=== PATIENT | male | born 1990 | race Two or more races ===

== ENCOUNTER 2018-09-16 05:49 | Inpatient (IN) | payer OTHER ==
[~2018-09-16] VITALS: Ht 188 cm; Wt 113.4 kg
--- NOTE | 2018-09-16 06:20 | NUR ---
Pt BIBSELF FROM HOME, WITH GIRLFRIEND AT BEDSIDE. Pt C/O RLQ ABD PAIN RADIATING TO RT FLANK SINCE LAST NIGHT. C/O DYSURIA WITH SENSATION OF "BLOCKAGE." DENIES ANY HEMATURIA. +N/-V/-D. LBM WAS YESTERDAY, PER Pt WAS NORMAL. Pt IS A/OX3, VERBAL, ABLE TO MAKE NEEDS KNOWN. NO S/S OF ACUTE DISTRESS OR SOB NOTED. Pt ALREADY SEEN BY MD AT BEDSIDE. WILL CONTINUE TO MONITOR Pt.
[2018-09-16] MEDS ORDERED: IV NS 0.9% 1,000 ML BAG IV ONE (06:30)
[2018-09-16] MEDS ORDERED: KETOROLAC TROMETHAMINE INJ 30 MG/ML VIAL IV ONE (06:30)
[2018-09-16] MEDS ORDERED: ONDANSETRON HCL/PF 4 MG/2 ML VIAL IVP ONE (06:30)
[2018-09-16] MEDS ORDERED: HYDROMORPHONE INJ 2 MG/ML DISP.SYRIN IV ONE (06:30)
--- NOTE | 2018-09-16 06:35 | NUR ---
IV ACCESS STARTED ON RAC#18G
[2018-09-16] MEDS ORDERED: KETOROLAC TROMETHAMINE 15 MG/ML VIAL ONE (06:47)
[2018-09-16 06:48] LABS: BASOPHILS # (AUTO) 0.1 /CMM (0.0-0.2); BASOPHILS % (AUTO) 0.4 % (0.0-2.0); EOSINOPHILS % (AUTO) 0.9 % (0.0-6.0); HEMATOCRIT 44 % (39-51); HEMOGLOBIN 15.5 g/dL (13.5-17.5); LYMPHOCYTES # (AUTO) 1.5 /CMM (0.8-4.8); LYMPHOCYTES % (AUTO) 9.4 % (20.0-44.0); MEAN CORPUSCULAR HGB CONC 35 g/dl (31.0-36.0); MEAN CORPUSCULAR VOLUME 88 fL (80-96); MONOCYTES # (AUTO) 1.2 /CMM (0.1-1.30); MONOCYTES % (AUTO) 7.7 % (2.0-12.0); NEUTROPHILS # (AUTO) 12.8 /CMM (1.8-8.9); NEUTROPHILS % (AUTO) 81.6 % (43.0-81.0); PLATELET COUNT (AUTO) 239 /CMM (150-450); RED BLOOD CELL COUNT(AUTO) 4.99 MIL/uL (4.5-6.0); WHITE BLOOD COUNT (AUTO) 15.7 K/uL (4.3-11.0)
[2018-09-16] MEDS ORDERED: ONDANSETRON HCL/PF 4 MG/2 ML VIAL ONE (06:48)
[2018-09-16] MEDS ORDERED: HYDROMORPHONE 1 MG/1 ML DISP.SYRIN ONE (06:48)
--- NOTE | 2018-09-16 06:50 | NUR ---
US of scrotum being done at bedside.
[2018-09-16 06:56] LABS: CALCIUM, SERUM 9.1 mg/dL (8.5-10.1); POTASSIUM 4.2 mmol/L (3.5-5.1)
[2018-09-16 07:02] LABS: ALBUMIN 3.9 g/dL (3.4-5.0); BILIRUBIN,DIRECT 0.2 mg/dL (0.0-0.2); TOTAL PROTEIN, SERUM 7.7 g/dL (6.4-8.2)
--- NOTE | 2018-09-16 07:05 | NUR ---
Pt TAKEN FOR CT
[2018-09-16 07:16] LABS: APPEARANCE,URINE CLEAR (CLEAR); BILIRUBIN,URINE NEGATIVE (NEGATIVE); BLOOD, URINE NEGATIVE Ery/uL (NEGATIVE); COLOR,URINE YELLOW (YELLOW); KETONES,URINE NEGATIVE (NEGATIVE); LEUKOCYTE ESTERASE ,URINE NEGATIVE (NEGATIVE); NITRITE, URINE NEGATIVE (NEGATIVE); PROTEIN,URINE NEGATIVE (NEGATIVE); UGLUCOSE NEGATIVE (NEGATIVE); UROBILINOGEN,URINE 0.2 EU/dL (0.2)
--- NOTE | 2018-09-16 07:17 | NUR ---
Pt RETURNED FROM CT
--- NOTE | 2018-09-16 07:28 | NUR ---
ALL ORDERED MEDS GIVEN
--- NOTE | 2018-09-16 07:29 | NUR ---
ENDORSED TO ONCOMING PERCUSSION INSTRUMENT TUNERDAISY FRAUSTO FOR Pt's JENNIFER
[2018-09-16] MEDS ORDERED: PIPERACILLIN /TAZOBACTAM 3.375 G in IV D5W 50 ML IV ONE (07:30)
--- NOTE | 2018-09-16 07:36 | NUR ---
PT BACK FROM CT SCAN AND ULTRA SOUND COMPLETED PT BEING ADMITTED FOR APPENDICITIS. PT HAS 18 G IN RIGHT AC FLUSHES EASILY WITHOUT PAIN REDNESS OR SWELLING. PT ALERT WITH ORIENTATION X 4. PT DEVELOPED RIGHT SIDED ABDOMINAL PAIN LAST NIGHT AROUND 2300. PRESENTLY PT RELIEVED WITH PAIN MEDICATIONS NORMAL SALINE BOLUS COMPLETED AFEBRILE VITAL SIGNS STABLE. LAST TIME PT ATE WAS 2200 LAST NIGHT AND HAS NOT VOIDED SINCE PT URINATES FREQUENTLY. PT PENDING ADMISSION.
--- NOTE | 2018-09-16 07:43 | NUR ---
@978 --- CALLED [facility] [phone]
[2018-09-16] MEDS ORDERED: ACETAMINOPHEN 325 MG TABLET PO PRN (08:00)
[2018-09-16] MEDS ORDERED: IV NS 0.9% 1,000 ML IV PRN (08:00)
[2018-09-16] MEDS ORDERED: ONDANSETRON HCL/PF 4 MG/2 ML VIAL IVP PRN (08:00)
[2018-09-16] MEDS ORDERED: ACETAMINOPHEN 650 MG/SUPP.RECT RC PRN (08:00)
--- NOTE | 2018-09-16 08:33 | NUR ---
[facility] GIV[facility] TO ELEAZAR PORRAS RN PT ADMITTED TO ROOM 322 ADMITTING MD ARMANDO. PT ADMITTED MED/PAVAN
[2018-09-16] MEDS: PANTOPRAZOLE 40 MG VIAL IV SCH (09:38)
[2018-09-16 10:21] VITALS: BP 123/86
[2018-09-16] MEDS: PIPERACILLIN /TAZOBACTAM 3.375 G in IV D5W 100 ML IV SCH ×2 (10:31→17:10)
[2018-09-16] MEDS ORDERED: LIDOCAINE HCL/PF 1% 30 ML SDV ONE (10:39)
[2018-09-16] MEDS ORDERED: BUPIVACAINE MPF 0.5% W/EPI INJ 30 ML VIAL ONE (10:39)
[2018-09-16] MEDS ORDERED: ANESTHESIA TRAY IN PYXIS 1 EA TRAY MC ONE (10:39)
[2018-09-16] MEDS ORDERED: MIDAZOLAM HCL 2 MG/2ML VIAL ONE (11:33)
[2018-09-16] MEDS ORDERED: FENTANYL PF 250MCG/5ML AMPUL ONE (11:33)
[2018-09-16] MEDS ORDERED: METOCLOPRAMIDE HCL 10 MG/2 ML VIAL ONE (11:34)
[2018-09-16] MEDS ORDERED: FAMOTIDINE/PF INJ 20 MG/2 ML VIAL IV ONE (11:34)
[2018-09-16] MEDS ORDERED: SUCCINYLCHOLINE CHLORIDE 20 MG/ML VIAL ONE (11:34)
[2018-09-16] MEDS ORDERED: PIPERACILLIN /TAZOBACTAM 3.375 G in IV D5W 50 ML IV SCH (12:00)
[2018-09-16] MEDS ORDERED: SEVOFLURANE 250 ML BOTTLE IH ONE (12:32)
[2018-09-16] MEDS ORDERED: IV D5/0.45 NACL W/20 MEQ KCL 1L IV PRN ×2 (13:30)
[2018-09-16] MEDS ORDERED: oxyCODONE/APAP (5/325 MG) 1 UDTAB TABLET PO PRN (13:30)
[2018-09-16] MEDS: HYDROMORPHONE INJ 2 MG/ML DISP.SYRIN IV PRN ×2 (15:02→20:03)
[2018-09-16 16:00] VITALS: BP 135/79
--- NOTE | 2018-09-16 18:26 | NUR ---
MS RN CLOSING NOTES PATIENT IS IN STABLE CONDITION. IN NO APPARENT DISTRESS. BEDSIDE RAILS ARE UPX2. BED IS LOCKED AND LOWERED. CALL LIGHT IS WITHIN REACH. IV LINE IS INTACT AND PATENT. ALL NEEDS WERE MET. WILL ENDORSE CARE TO BASIC ACOUSTIC ANALYST NURSE FOR JENNIFER.
--- NOTE | 2018-09-16 19:44 | NUR ---
RN MS OPENING NOTES RECEIVED PT IN BED, AWAKE ALERT ORIENTED X4. AT BEDSIDE. PT BREATHING EVEN AND UNLABORED ON ROOM AIR. COMPLAINTS OF PAIN AROUND INCISIONS 04/08, WILL ADMINISTER 1G DILAUDID. IV ACCESS ON THE RAC #18 AND LFA #22 WITH D51/2NS @60ML. BED IN LOWEST LOCKED POSITION, CALL LIGHT WITHIN REACH AT ALL TIMES. WILL CONTINUE TO MONITOR
[2018-09-16 20:21] VITALS: BP 128/70
[2018-09-17] MEDS: PIPERACILLIN /TAZOBACTAM 3.375 G in IV D5W 100 ML IV SCH ×2 (03:23→09:31)
[2018-09-17] MEDS: HYDROMORPHONE INJ 2 MG/ML DISP.SYRIN IV PRN ×2 (05:26→11:34)
--- NOTE | 2018-09-17 06:41 | NUR ---
PT REMAINS IN BED AWAKE ALERT AND ORIENTEDX4, BREATHING EVEN AND UNLABORED ON RA, NO SOB, COUGH OR CONGESTION. NO COMPLAINT OF PAIN OR DISCOMFORT AT THIS TIME.DRESSING ON LAP INCISION IN PLACE, CLEAN AND DRY. IV ACCESS ON THE RIGHT AC #18 AND L FA #22G WITH D5 1/2 NS 20MEQ @60ML/HR. NO SIGNIFICANT CHANGE IN CONDITION DURING SHIFT. BED IN LOWEST LOCKED POSITION, CALL LIGHT WITHIN REACH AT ALL TIMES, WILL ENDORSE TO DAY NURSE FOR JENNIFER.
[2018-09-17 07:20] LABS: BASOPHILS % (AUTO) 0.3 % (0.0-2.0); EOSINOPHILS % (AUTO) 1.9 % (0.0-6.0); HEMATOCRIT 41 % (39-51); HEMOGLOBIN 14.3 g/dL (13.5-17.5); LYMPHOCYTES % (AUTO) 22.9 % (20.0-44.0); MEAN CORPUSCULAR HGB CONC 35 g/dl (31.0-36.0); MEAN CORPUSCULAR VOLUME 89 fL (80-96); MONOCYTES % (AUTO) 11.7 % (2.0-12.0); NEUTROPHILS # (AUTO) 5.4 /CMM (1.8-8.9); NEUTROPHILS % (AUTO) 63.2 % (43.0-81.0); PLATELET COUNT (AUTO) 219 /CMM (150-450); RED BLOOD CELL COUNT(AUTO) 4.64 MIL/uL (4.5-6.0); WHITE BLOOD COUNT (AUTO) 8.6 K/uL (4.3-11.0)
[2018-09-17 07:36] LABS: CALCIUM, SERUM 8.4 mg/dL (8.5-10.1); MAGNESIUM 1.7 mg/dL (1.8-2.4); PHOSPHORUS 3.5 mg/dL (2.5-4.9); POTASSIUM 3.9 mmol/L (3.5-5.1)
--- NOTE | 2018-09-17 07:39 | NUR ---
MS RN OPENING NOTES RECEIVED PATIENT IN STABLE CONDITION. IN NO APPARENT DISTRESS. BEDSIDE RAILS ARE UPX2. BED IS LOCKED AND LOWERED. CALL LIGHT IS WITHIN REACH. IV LINE IS INTACT AND PATENT. WILL CONTINUE TO MONITOR PATIENT.
[2018-09-17 08:00] VITALS: BP 120/77
[2018-09-17] MEDS: PANTOPRAZOLE 40 MG VIAL IV SCH (09:30)
[2018-09-17] MEDS ORDERED: Magnesium 1GM/D5W 100ML PREMIX 100 ML IV ONE (12:00)
[2018-09-17] MEDS ORDERED: MAGNESIUM OXIDE 400 MG TABLET PO ONE (13:00)
--- NOTE | 2018-09-17 14:21 | NUR ---
PATIENT DISCHARGED IN STABLE CONDITION. IN NO APPARENT DISTRESS. EXITCARE SIGNED AND GIVEN TO THE PATIENT. IV LINE WAS REMOVED. ID BAND WAS REMOVED. ALL NEEDS WERE MET. PRESCRIPTIONS WERE PROVIDED TO THE PATIENT. PATIENT ESCORTED OUT OF THE FACILITY VIA WHEELCHAIR BY TAMIKO SANTOS. PATIENT WILL BE DRIVEN HOME SAFELY BY .
== END 2018-09-17 14:20 | disposition home or self-care (01) | DRG 234 ==
LOC: ER 05:52 → MED 08:21
PROVIDERS: ADMIT Nurse Practitioner Acute Care; ATTEND Nurse Practitioner Acute Care
PROC: 0DTJ4ZZ Resection of Appendix, Percutaneous Endoscopic Approach (ICD-10-PCS; principal; 2018-09-16 12:00)
DX: K35.80 Unspecified acute appendicitis (principal); E83.42 Hypomagnesemia; E66.9 Obesity, unspecified; F12.90 Cannabis use, unspecified, uncomplicated; Z68.32 Body mass index [BMI] 32.0-32.9, adult; K64.8 Other hemorrhoids
CPT/HCPCS: 36415; 76870-TC; 80048-TC; 80076-TC; 81000-TC; 83690-TC; 83735-TC; 84100-TC; 85025-TC; 85730-TC; 87081-TC; 87086-TC; 88304-TC; A4606; C9113; G0378; J0330; J1170; J1885; J2250; J2405; J2543; J2704; J2765; J3010; J3480; J3490; J7030; J7060; Z7610